=== PATIENT | male | born 1985 | race Caucasian/White ===

== ENCOUNTER 2022-09-30 10:13 | Emergency (ER) | payer OTHER, SELFPAY ==
[2022-09-30 10:18] VITALS: BP 161/97; PULSE 76; RESP 14; TEMP 36.7; O2SAT 99; BMI 28.7
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
--- NOTE | 2022-09-30 10:34 | DI.RAD.S_ITS ---
PROCEDURE: XR KNEE RT 3V INDICATIONS: R anterior knee pain, worse with ambulation, surgery sep 2021 arthroscope TECHNIQUE: 3 views of the knee were acquired. COMPARISON: None. FINDINGS: Bones: No fractures or dislocations. No suspicious bony lesions. Soft tissues: No significant joint effusion. No suspicious soft tissue calcifications. IMPRESSION: No significant osseous abnormality. Dictated by: Sonu Hoang M.D. on 09/30/2022 at 10:17 Approved by: Sonu Hoang M.D. on 09/30/2022 at 10:18
[2022-09-30 11:42] VITALS: BP 140/83; PULSE 77; RESP 16; O2SAT 99
== END 2022-09-30 11:42 | disposition home or self-care (01) ==
PROVIDERS: Emergency Provider Emergency Medicine
DX: S89.91XA Unspecified injury of right lower leg, initial encounter (principal); X50.1XXA Overexertion from prolonged static or awkward postures, initial encounter
CPT/HCPCS: 73562; 99281; 99283